=== PATIENT | male | born 1955 | race Caucasian/White ===

== ENCOUNTER 2018-04-16 00:16 | Emergency (ER) | payer BC, OTHER ==
--- NOTE | 2018-04-16 00:18 | PDOC ---
History of Present Illness - General Stated Complaint: KIDNEY STONES Time Seen by Provider: 04/16/18 00:18 History Source: Patient - History of Present Illness Initial Comments: 04/16/18 00:33 Pt presents to the ED complaining of a one hour history of R sided flank pain radiating to the R groin. Denies fever, nausea and vomiting or testicular pain. Denies dysuria. Has a prior history of multiple stones and states that this pain is similar. Follows with a urologist at [facility] who he last saw this fall and was told that he had multiple small stones in his kidney. All of his prior stones have passed on their own and did not require intervention. Past History - Past Medical History Allergies/Adverse Reactions: Allergies Allergy/AdvReac Type Severity Reaction Status Date / Time No Known Allergies Allergy Verified 09/20/14 14:12 Home Medications: Ambulatory Orders Aspirin [ASA -] 81 mg PO DAILY 09/20/14 Metoprolol Succinate [Toprol Xl] 25 mg PO BID 09/20/14 Rosuvastatin Calcium [Crestor] 20 mg PO DAILY 09/20/14 Ibuprofen 800 mg PO TID PRN #30 tablet 04/16/18 HTN: Yes - Suicide/Smoking/Psychosocial Hx Smoking History: Never smoked Hx Alcohol Use: No Substance Use Type: None Review of Systems - Review of Systems Able to Perform ROS?: Yes Is the patient limited [place] proficient: No Constitutional: No: Symptoms Reported, See HPI, Chills, Diaphoresis, Fever, Loss of Appetite, Malaise, Night Sweats, Weakness, Weight Stable, Unintentional Wgt. Loss, Unexplained wgt Loss, Other HEENTM: No: Symptoms Reported, See HPI, Eye Pain, Blurred Vision, Tearing, Recent change in vision, Double Vision, Cataracts, Ear Pain, Ocular Prothesis, Ear Discharge, Nose Pain, Nose Congestion, Tinnitus, Nose Bleeding, Hearing Loss , Throat Pain, Throat Swelling, Mouth Pain, Dental Problems, Difficulty Swallowing, Mouth Swelling, Other Respiratory: No: Symptoms reported, See HPI, Cough, Orthopnea, Shortness of Breath, SOB with Exertion, SOB at Rest, Stridor, Wheezing, Productive cough, Hemoptysis, Other Cardiac (ROS): No: Symptoms Reported, See HPI, Chest Pain, Edema, Irregular Heart Rate, Lightheadedness, Palpitations, Syncope, Chest Tightness, Other ABD/GI: No: Symptoms Reported, See HPI, Abdominal Distended, Abd. Pain w/ defecation, Blood Streaked Bowels, Constipated, Diarrhea, Difficulty Swallowing , Nausea, Poor Appetite, Poor Fluid Intake, Rectal Bleeding, Vomiting, Indigestion, Abdominal cramping, Tarry Stools, Other : Yes: Flank Pain. No: Symptoms Reported, See HPI, Burning, Dysuria, Discharge, Frequency, Hematuria, Incontinence, Pain, Urgency, Testicular Mass, Testicular Swelling, Lesions, Testicular Pain, Other Musculoskeletal: No: Symptoms Reported, See HPI, Back Pain, Gout, Joint Pain, Joint Swelling, Muscle Pain, Muscle Weakness, Neck Pain, Joint Stiffness, Other Integumentary: No: Symptoms Reported, See HPI, Bruising, Change in Color, Change in Hair/Nails, Dryness, Erythema, Flushing, Lesions, Lumps, Pallor, Pruritus, Rash, Sweating, Other Neurological: No: Symptoms reported, See HPI, Headache, Numbness, Paresthesia, Pre-Existing Deficit, Seizure, Tingling, Tremors, Weakness, Unsteady Gait, Ataxia, Dizziness, Other Psychiatric: No: Anxiety, Depression, Frequent Crying, Stressors, Sleep Pattern Change, Emotional Problems, Mood Swings, Change in Appetite, Other Endocrine: No: Symptoms Reported, See HPI, Excessive Sweating, Flushing, Intolerance to Cold, Intolerance to Heat, Increased Hunger, Increased Thirst, Increased Urine, Unexplained Weight Gain, Unexplained Weight Loss, Change in Weight, Other Hematologic/Lymphatic: No: Symptoms Reported, See HPI, Anemia, Blood Clots, Easy Bleeding, Easy Bruising, Bleeding Diathesis, Lymph Node Abnormalities, Swollen Glands, Other *Physical Exam - Physical Exam General Appearance: Yes: Nourished, Appropriately Dressed HEENT: positive: Normal Voice Neck: positive: Supple Respiratory/Chest: positive: Lungs Clear, Normal Breath Sounds Cardiovascular: positive: Regular Rhythm, Regular Rate, S1, S2 Gastrointestinal/Abdominal: positive: Flat, Soft. negative: Tender, Organomegaly, Pulsatile Mass, Increased Bowel Sounds, Decreased BS, Protuberent , Distended, Guarding, Rebound, Tenderness, Hernia, Mass, Hepatomegaly, Spleenomegaly, Other Musculoskeletal: positive: Normal Inspection. 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 Longstanding history of multiple benign stones in the past. Pain is most likely secondary to renal stones. Unlikely to be AAA or dissection because the pain is mild in severity and very similar in character to his previous stones. Patient offered imaging which he declines at this time. Will give pain control and check labs and UA and reassess. Will consider imaging if pain worsens. *DC/Admit/Observation/Transfer Diagnosis at time of Disposition: Kidney stone - Discharge Dispostion Disposition: HOME Condition at time of disposition: Good Decision to Admit order: No - Prescriptions Prescriptions: Ibuprofen 800 mg PO TID PRN #30 tablet PRN Reason: Severe Pain - Referrals - Patient Instructions Printed Discharge Instructions: DI for Kidney Stones Additional Instructions: You came to the ED for pain in your side that is most likely caused by a kidney stone. You should return for severe pain, pain with fever, pain that does not resolve within two days, severe nausea and vomiting, other new or worsening symptoms. If your symptoms get worse or do not resolve, you should return for imaging. - Post Discharge Activity
[2018-04-16 00:30] VITALS: BP 155/102; PULSE 66; TEMP 97.8; BMI 26.5
[2018-04-16] MEDS ORDERED: SODIUM CHLORIDE 0.9% 500 ML INFUS.BAG IV ONE (00:30)
[2018-04-16] MEDS ORDERED: KETOROLAC TROMETHAMINE 30 MG/1 ML VIAL IVPUSH ONE (00:30)
[2018-04-16] MEDS ORDERED: KETOROLAC TROMETHAMINE 30 MG/1 ML VIAL ONE (00:42)
[2018-04-16 01:24] LABS: BASO % 0.6 % (0-2.0); EOS % 5.7 % (0-4.5); HEMATOCRIT 42.2 % (35.4-49); HEMOGLOBIN 14.5 GM/dL (11.7-16.9); MCHC 34.2 g/dl (32.0-35.9); MEAN CELL VOLUME 93.3 fl (80-96); MEAN PLT VOLUME 9.9 fl (7.5-11.1); MONO % 10.7 % (3.8-10.2); PLATELET COUNT 271 K/MM3 (134-434); RBC 4.52 M/mm3 (4.00-5.60); RDW 13.9 % (11.9-15.9); WHITE BLOOD COUNT 7.5 K/mm3 (4.0-10.0)
[2018-04-16 01:38] LABS: URINE APPEARANCE CLEAR; URINE BILIRUBIN NEGATIVE (<2.0 mg/dL); URINE COLOR STRAW; URINE GLUCOSE (UA) NEGATIVE (NEGATIVE); URINE KETONE NEGATIVE (NEGATIVE); URINE LEUK ESTERASE NEGATIVE (NEGATIVE); URINE NITRITE NEGATIVE (NEGATIVE); URINE PROTEIN NEGATIVE (NEGATIVE); URINE UROBILINOGEN NEGATIVE mg/dL (0.2-1.0)
[2018-04-16 01:47] LABS: ALBUMIN 3.9 g/dl (3.4-5.0); ALK PHOS 63 U/L (45-117); ANION GAP 5 MMOL/L (8-16); BILIRUBIN,TOTAL 0.3 mg/dL (0.2-1); BLOOD UREA NITROGEN 26 mg/dL (7-18); CALCIUM 8.8 mg/dL (8.5-10.1); CHLORIDE 105 mmol/L (98-107); CO2 30 mmol/L (21-32); GLUCOSE,RANDOM 116 mg/dL (74-106); POTASSIUM 4.4 mmol/L (3.5-5.1); SGOT/AST 19 U/L (15-37); SGPT/ALT 23 U/L (13-61); SODIUM 140 mmol/L (136-145); TOT PROT 6.7 g/dl (6.4-8.2)
[2018-04-16 01:49] LABS: EPI CELLS RARE /HPF (FEW); URINE MUCUS RARE
== END 2018-04-16 02:02 | disposition home or self-care (01) ==
LOC: FER 00:16
PROC: 3E0337Z Introduction of Electrolytic and Water Balance Substance into Peripheral Vein, Percutaneous Approach (ICD-10-PCS; principal; 2018-04-16)
DX: N20.0 Calculus of kidney (principal); I10 Essential (primary) hypertension
CPT/HCPCS: 36415; 80053; 81003; 81015; 85025; 99283-25

== ENCOUNTER 2018-09-11 19:42 | Emergency (ER) | payer OTHER | END 2018-09-11 22:29 | disposition home or self-care (01) | LOC: FER 19:42 ==

== ENCOUNTER 2021-09-30 13:09 | Emergency (ER) | payer OTHER ==
[2021-09-30 14:16] VITALS: BMI 26.8
[2021-09-30] MEDS ORDERED: BEBTELOVIMAB (EUA) 175 MG/2 ML VIAL IVPUSH ONE (14:55)
[2021-09-30 16:52] VITALS: BP 113/74; PULSE 68; TEMP 99
== END 2021-09-30 17:05 | disposition home or self-care (01) ==
LOC: JCOVINFU 13:09
PROC: 3E033GC Introduction of Other Therapeutic Substance into Peripheral Vein, Percutaneous Approach (ICD-10-PCS; principal; 2021-09-30)
DX: U07.1 COVID-19 (principal)
CPT/HCPCS: 99284-25; M0222; Q0222

== ENCOUNTER 2023-09-22 21:50 | Emergency (ER) | payer OTHER ==
[2023-09-22 22:02] VITALS: BMI 26.9
[2023-09-22 22:14] VITALS: BP 138/87; PULSE 78; RESP 18; TEMP 98.2
[2023-09-22] MEDS ORDERED: KETOROLAC TROMETHAMINE 30 MG/1 ML VIAL ONE (22:15)
[2023-09-22] MEDS ORDERED: ONDANSETRON 4 MG/2 ML VIAL ONE (22:15)
[2023-09-22] MEDS: SODIUM CHLORIDE 1,000 ML IV ONE (22:24)
[2023-09-22] MEDS: KETOROLAC TROMETHAMINE 30 MG/1 ML VIAL IVPUSH ONE (22:25)
[2023-09-22] MEDS: ONDANSETRON 4 MG/2 ML VIAL IVPUSH ONE (22:25)
[2023-09-22 22:30] LABS: HEMATOCRIT 44.2 % (35.4-49); HEMOGLOBIN 14.4 G/dL (11.7-16.9); MCH 30.6 pg (25.7-33.7); MCHC 32.6 g/dl (32.0-35.9); MEAN CELL VOLUME 93.6 fl (80-96); MEAN PLT VOLUME 9.1 fl (7.5-11.1); PLATELET COUNT 295.9 10^3/uL (134-434); RBC 4.72 10^6/uL (4.00-5.60); RDW 14.2 % (11.9-15.9); WHITE BLOOD COUNT 9.7 10^3/uL (4.0-10.8)
[2023-09-22 22:54] LABS: ALBUMIN 4.1 g/dl (3.4-5.0); BILIRUBIN,TOTAL 0.6 mg/dl (0.2-1); CREATININE 1.6 mg/dl (0.6-1.3); TOT PROT 6.7 g/dl (6.4-8.2)
[2023-09-22 22:56] LABS: POTASSIUM 5.2 mmol/L (3.5-5.1)
== END 2023-09-23 00:42 | disposition home or self-care (01) ==
LOC: FER 21:50
PROC: 3E0333Z Introduction of Anti-inflammatory into Peripheral Vein, Percutaneous Approach (ICD-10-PCS; principal; 2023-09-22)
PROC: 3E033GC Introduction of Other Therapeutic Substance into Peripheral Vein, Percutaneous Approach (ICD-10-PCS; 2023-09-22)
PROC: 3E0337Z Introduction of Electrolytic and Water Balance Substance into Peripheral Vein, Percutaneous Approach (ICD-10-PCS; 2023-09-22)
DX: R10.9 Unspecified abdominal pain (principal)
CPT/HCPCS: 36415; 74176-TC; 80053; 81003; 81015; 85027; 99284-25